=== PATIENT | female | born 1950 ===

== ENCOUNTER 2017-11-07 12:05 | Emergency (ER) | payer MEDICARE, OTHER ==
[2017-11-07 12:05] VITALS: BMI 32.4
[2017-11-07 12:20] VITALS: BP 136/77; PULSE 84; RESP 16; TEMP 98.4; O2SAT 97
--- NOTE | 2017-11-07 12:57 | C.PDOC ---
History Of Present Illness 67 y/o female presents to the ED for evaluation of a wound to her left thumb, sustained 1.5 weeks ago. Patient states she accidentally cut the finger 1.5 weeks ago against a piece of glass. At the time she did not see any foreign body. Patient then saw her PMD a few days ago due to still having pain at the site. X-ray was ordered by her PMD and done earlier today, however patient did not want to wait for results and came here for further evaluation. Tetanus is not up to date. There is no active bleeding. Time Seen by Provider: 11/07/17 12:41 Chief Complaint (Nursing): Finger,Hand,&Wrist History Per: Patient History/Exam Limitations: no limitations Onset/Duration Of Symptoms: Days Current Symptoms Are (Timing): Still Present Past Medical History Reviewed: Historical Data, Nursing Documentation, Vital Signs Vital Signs: Last Vital Signs Temp 98.4 F 11/07/17 12:17 Pulse 84 11/07/17 12:17 Resp 16 11/07/17 12:17 BP 136/77 11/07/17 12:17 Pulse Ox 97 11/07/17 14:26 - Medical History PMH: Anxiety, Arthritis, Asthma Denies: Chronic Kidney Disease Surgical History: Cholecystectomy - [facility] Procedures ESOPHAGOGASTRODUODENOSCOPY [EGD] W/CLOSED BIOPSY (12/08/14) Family History: States: Unknown Family Hx - Social History Hx Tobacco Use: Yes Hx Alcohol Use: No Hx Substance Use: No - Immunization History Hx Tetanus Toxoid Vaccination: No Hx Influenza Vaccination: No Hx Pneumococcal Vaccination: No Review Of Systems Except As Marked, All Systems Reviewed And Found Negative. Skin: Positive for: Lesions Neurological: Negative for: Weakness, Numbness Physical Exam - Physical Exam Appears: Non-toxic, No Acute Distress Skin: Normal Color, Warm, Dry Head: Atraumatic, Normacephalic Eye(s): bilateral: Normal Inspection Oral Mucosa: Moist Neck: Normal ROM Chest: Symmetrical Respiratory: No Accessory Muscle Use Extremity: Normal ROM, Capillary Refill (< 2 sec), Other (marginal to left thumb nail there is a healing laceration, 4 mm in length, with no fluctuance or drainage. Area is minimally tender to palpation, with minimal swelling ) Pulses: Left Radial: Normal, Right Radial: Normal Neurological/Psych: Oriented x3, Normal Speech, Normal Motor, Normal Sensation ED Course And Treatment O2 Sat by Pulse Oximetry: 97 (RA) Pulse Ox Interpretation: Normal - Other Rad left hand xray X-Ray: Viewed By Me, Read By Radiologist Interpretation: PROCEDURE: Left Hand Radiographs. HISTORY: PAIN/SWELLING/ GLASS IN THE THUMB. COMPARISON: None. FINDINGS: BONES: No acute fracture. JOINTS: Mild joint space narrowing. SOFT TISSUES: No retained radiopaque foreign body. OTHER FINDINGS: None. IMPRESSION: No demonstrated fracture or dislocation. No retained radiopaque foreign body Progress Note: Tetanus booster given in the ED. X-ray findings from today were reviewed, and discussed with patient. Will d/c patient home with with Keflex. Patient advised to follow up with hand specialist as needed, referral provided. Disposition Counseled Patient/Family Regarding: Studies Performed, Diagnosis, Need For Followup, Rx Given - Disposition Referrals: Jeffery Jenkins MD [Staff Provider] - Disposition: HOME/ ROUTINE Disposition Time: 12:54 Condition: STABLE Additional Instructions: Follow up with your PMD and Hand specialist within 1-2 days. Return to ED if feel worse. Prescriptions: Mupirocin 2% Ointment [Bactroban Ointment] 1 appl TP BID #1 tube Cephalexin [Keflex] 500 mg PO Q6 #28 cap Instructions: Wound Infection Forms: [facility] (Yakut) - Clinical Impression Clinical Impression: Laceration of finger with infection - PA / CORK MOLDER / Resident Statement MD/DO has reviewed & agrees with the documentation as recorded. - Scribe Statement The provider has reviewed the documentation as recorded by the Scribe (Arianne Mendoza) All medical record entries made by the Scribe were at my direction and personally dictated by me. I have reviewed the chart and agree that the record accurately reflects my personal performance of the history, physical exam, medical decision making, and the department course for this patient. I have also personally directed, reviewed, and agree with the discharge instructions and disposition.
[2017-11-07] MEDS ORDERED: Tetanus/Diphtheria Toxoids 0.5 ml Syringe IM ONE ×2 (13:00→13:08)
== END 2017-11-07 13:14 | disposition home or self-care (01) ==
LOC: C.ER 12:05
DX: S61.012D Laceration without foreign body of left thumb without damage to nail, subsequent encounter (principal); L08.9 Local infection of the skin and subcutaneous tissue, unspecified; W25.XXXD Contact with sharp glass, subsequent encounter

== ENCOUNTER 2018-01-07 16:44 | Emergency (ER) | payer MEDICARE, OTHER ==
[2018-01-07 16:46] VITALS: BMI 32.4
[2018-01-07] MEDS ORDERED: Sodium Chloride 0.9% 1,000 ML IV ONE (17:18)
[2018-01-07] MEDS ORDERED: Sodium Chloride 0.9% 1,000 ML ONE (17:35)
[2018-01-07] MEDS ORDERED: Iodixanol 320 MG/ML 100 ML BOTTLE IV ONE (17:45)
[2018-01-07 17:47] LABS: BASO % 0.5 % (0.0-2.0); EOS # 0.3 K/uL (0.0-0.7); EOS % 3.3 % (0.0-4.0); HEMOGLOBIN 13.2 g/dL (11.0-16.0); LYMPH # 1.9 K/uL (1.0-4.3); LYMPH % 20.9 % (20.0-40.0); MEAN CELL VOLUME 92.6 fL (81.0-99.0); MEAN CORPUSCULAR HEMOGLOBIN 30.9 pg (27.0-31.0); MEAN CORPUSCULAR HGB CONC 33.4 g/dL (33.0-37.0); MEAN PLATELET VOLUME 7.7 fL (7.2-11.7); MONO # 0.7 K/uL (0.0-0.8); MONO % 7.6 % (0.0-10.0); NEUT # 6.1 K/uL (1.8-7.0); NEUT % 67.7 % (50.0-75.0); NRBC % 0.1 % (0.0-2.0); RBC 4.28 Mil/uL (3.80-5.20); RED CELL DISTRIBUTION WIDTH 13.1 % (11.5-14.5); WHITE BLOOD COUNT 9.1 K/uL (4.8-10.8)
[2018-01-07 18:01] LABS: ALB/GLOB RATIO 1.3 (1.0-2.1); ALBUMIN 4.1 g/dL (3.5-5.0); ALT/SGPT 32 U/L (9-52); AST/SGOT 24 U/L (14-36); BLOOD UREA NITROGEN 15 mg/dL (7-17); CALCIUM 9.3 mg/dl (8.6-10.4); GFR AFRICAN-AMERICAN > 60; GFR NON-AFRICAN AMERICAN > 60; LIPASE 92 U/L (23-300)
--- NOTE | 2018-01-07 18:28 | C.PDOC ---
History Of Present Illness <Karthik Vazquezov - Last Filed: 01/07/18 18:54> <Chidi Benavidez - Last Filed: 01/07/18 21:22> 67-year-old female, presents to the emergency department with complaints of abdominal pain for three months. She notes associated swelling. Patient went to her doctor today, who sent her to the ED for further evaluation. Patient denies any nausea/vomiting, diarrhea, fever, chills, chest pain, shortness of breath, dysuria, or any other associated symptoms. (Rose Vazquez) History Per: Patient History/Exam Limitations: no limitations Current Symptoms Are (Timing): Still Present Severity: Moderate Location Of Pain/Discomfort: Diffuse <Rose Vazquez - Last Filed: 01/07/18 18:54> <Chidi Benavidez - Last Filed: 01/07/18 21:22> Time Seen by Provider: 01/07/18 17:06 Chief Complaint (Nursing): Abdominal Pain Past Medical History Reviewed: Historical Data, Nursing Documentation, Vital Signs - Medical History PMH: Anxiety, Arthritis, Asthma Surgical History: Cholecystectomy Family History: States: No Known Family Hx - Social History Hx Tobacco Use: Yes Hx Alcohol Use: No Hx Substance Use: No - Immunization History Hx Tetanus Toxoid Vaccination: Yes Hx Influenza Vaccination: Yes Hx Pneumococcal Vaccination: Yes <Rose Vazquez - Last Filed: 01/07/18 18:54> Vital Signs: Last Vital Signs Temp 99 F 01/07/18 16:56 Pulse 92 H 01/07/18 16:56 Resp 20 01/07/18 16:56 BP 113/52 L 01/07/18 16:56 Pulse Ox 97 01/07/18 18:56 - [facility] Procedures ESOPHAGOGASTRODUODENOSCOPY [EGD] W/CLOSED BIOPSY (12/08/14) Review Of Systems Constitutional: Negative for: Fever, Chills Cardiovascular: Negative for: Chest Pain Respiratory: Negative for: Cough, Shortness of Breath Gastrointestinal: Positive for: Abdominal Pain. Negative for: Nausea, Vomiting Genitourinary: Negative for: Dysuria Musculoskeletal: Negative for: Back Pain Skin: Negative for: Rash <Rose Vazquez - Last Filed: 01/07/18 18:54> Physical Exam - Physical Exam Appears: Non-toxic, No Acute Distress Skin: Normal Color, Warm, Dry, No Rash Head: Atraumatic, Normacephalic Eye(s): bilateral: Normal Inspection, PERRL, EOMI Nose: Normal Oral Mucosa: Moist Lips: Normal Appearing Neck: Normal ROM, Supple Chest: Symmetrical Cardiovascular: Rhythm Regular Respiratory: Normal Breath Sounds, No Accessory Muscle Use Gastrointestinal/Abdominal: Soft, Tenderness (diffuse), No Guarding, No Rebound Back: Normal Inspection Extremity: Normal ROM, No Deformity, No Swelling Neurological/Psych: Oriented x3, Normal Speech <Rose Vazquez - Last Filed: 01/07/18 18:54> ED Course And Treatment - Laboratory Results Result Diagrams: 01/07/18 17:44 01/07/18 17:44 O2 Sat by Pulse Oximetry: 97 (RA) Pulse Ox Interpretation: Normal Progress Note: Bloodwork, CT abd/pel and UA ordered and reviewed. Pt treated with IVF, Toradol and Pepcid. Case endorsed to Dr Benavidez pending labs, CT and re-evaluation. <Rose Vazquez - Last Filed: 01/07/18 18:54> - Laboratory Results Result Diagrams: 01/07/18 17:44 01/07/18 17:44 Pulse Ox Interpretation: Normal Reevaluation Time: 21:14 Reassessment Condition: Improved <Chidi Benavidez - Last Filed: 01/07/18 21:22> Disposition - Disposition Disposition Time: 18:56 <Karthik Vazquezov - Last Filed: 01/07/18 18:54> Counseled Patient/Family Regarding: Studies Performed, Diagnosis, Need For Followup, Rx Given <Chidi Benavidez - Last Filed: 01/07/18 21:22> - Disposition Referrals: Leonela Braun MD [Non-Staff] - Condition: FAIR Additional Instructions: Please return if symptoms recur Prescriptions: Ciprofloxacin [Cipro] 1 tab PO BID #14 tab metroNIDAZOLE [Flagyl] 500 mg PO TID #21 tab Instructions: Acute Abdomen (Belly Pain), Adult (DC), Diverticulosis (DC), Urinary Tract Infection, Adult (DC) Forms: [employer] (Moroccan) - Clinical Impression Clinical Impression: Abdominal pain, Diverticulosis, UTI (urinary tract infection) - Scribe Statement The provider has reviewed the documentation as recorded by the Scribe (Valerie Kwok) <Rose Vazquez - Last Filed: 01/07/18 18:54> <Chidi Benavidez - Last Filed: 01/07/18 21:22> - Scribe Statement All medical record entries made by the Scribe were at my direction and personally dictated by me. I have reviewed the chart and agree that the record accurately reflects my personal performance of the history, physical exam, medical decision making, and the department course for this patient. I have also personally directed, reviewed, and agree with the discharge instructions and disposition. (Rose Vazquez)
[2018-01-07 21:11] LABS: SQUAMOUS EPITHIAL 10 /hpf (0-5); URINE BACTERIA RARE (<OCC); URINE BILIRUBIN NEGATIVE (NEGATIVE); URINE BLOOD NEGATIVE (NEGATIVE); URINE CLARITY Hazy (Clear); URINE COLOR Yellow (YELLOW); URINE GLUCOSE (UA) NORMAL (Normal); URINE LEUKOCYTE ESTERASE 3+ Leu/uL (Negative); URINE PROTEIN NEGATIVE (NEGATIVE); URINE UROBILINOGEN NORMAL mg/dL (0.2-1.0)
[2018-01-07 21:42] VITALS: BP 133/72; PULSE 70; RESP 16; TEMP 99.1; O2SAT 98
--- NOTE | 2018-01-08 10:52 | CT ---
Date of service: 01/07/2018 PROCEDURE: CT Abdomen and Pelvis with contrast HISTORY: abd pain COMPARISON: Comparison is made with 02/19/2015 TECHNIQUE: Contrast dose: 100 cc of Visipaque 320. Axial and reformatted coronal and sagittal CT images of the abdomen and pelvis were obtained after IV contrast administration. Radiation dose: Total exam DLP = 946.88 mGy-cm. This CT exam was performed using one or more of the following dose reduction techniques: Automated exposure control, adjustment of the mA and/or kV according to patient size, and/or use of iterative reconstruction technique. FINDINGS: LOWER THORAX: Unremarkable. LIVER: Unremarkable. No gross lesion or ductal dilatation. GALLBLADDER AND BILE DUCTS: Status post cholecystectomy PANCREAS: Unremarkable. No gross lesion or ductal dilatation. SPLEEN: Unremarkable. ADRENALS: Unremarkable. No mass. KIDNEYS AND URETERS: Unremarkable. No hydronephrosis. No solid mass. VASCULATURE: Unremarkable. No aortic aneurysm. BOWEL: Colonic diverticulosis are noted without evidence of diverticulitis. . No obstruction. No gross mural thickening. APPENDIX: No evidence of appendicitis. PERITONEUM: Unremarkable. No free fluid. No free air. LYMPH NODES: Unremarkable. No enlarged lymph nodes. BLADDER: Unremarkable. REPRODUCTIVE: Unremarkable. BONES: No acute fracture. OTHER FINDINGS: None. IMPRESSION: No evidence of acute pathology in the abdomen and pelvis. Colonic diverticulosis without CT evidence of diverticulitis. Preliminary report was submitted by [facility].
== END 2018-01-07 22:17 | disposition home or self-care (01) ==
LOC: C.ER 16:44
DX: K57.30 Diverticulosis of large intestine without perforation or abscess without bleeding (principal); N39.0 Urinary tract infection, site not specified
CPT/HCPCS: 74177; 80053; 81001; 83690; 85025; 96361; 96374; 96375; 99284; J1885; J7030; Q9967

== ENCOUNTER 2018-06-12 10:52 | Emergency (ER) | payer MEDICARE, OTHER ==
[2018-06-12 10:52] VITALS: BMI 32.4
[2018-06-12 11:01] VITALS: BP 154/77; PULSE 88; RESP 18; TEMP 98.2; O2SAT 99
--- NOTE | 2018-06-12 11:53 | C.PDOC ---
Time Seen by Provider: 06/12/18 11:32 Chief Complaint (Nursing): Abnormal Skin Integrity History Per: Patient Onset/Duration Of Symptoms: Days (few) Current Symptoms Are (Timing): Still Present Possible Cause: Unknown Associated Symptoms: Itching Home/EMS Treatment: None Severity: Moderate Additional History Per: Prior Records Past Medical History Reviewed: Historical Data, Nursing Documentation, Vital Signs Vital Signs: Last Vital Signs Temp 98.2 F 06/12/18 10:54 Pulse 88 06/12/18 10:54 Resp 18 06/12/18 10:54 BP 154/77 H 06/12/18 10:54 Pulse Ox 99 06/12/18 10:54 - Medical History PMH: Anxiety, Arthritis, Asthma Surgical History: Cholecystectomy - [facility] Procedures ESOPHAGOGASTRODUODENOSCOPY [EGD] W/CLOSED BIOPSY (12/08/14) Family History: States: Unknown Family Hx - Social History Hx Tobacco Use: Yes Hx Alcohol Use: No Hx Substance Use: No - Immunization History Hx Tetanus Toxoid Vaccination: Yes Hx Influenza Vaccination: Yes Hx Pneumococcal Vaccination: Yes Review Of Systems Except As Marked, All Systems Reviewed And Found Negative. Constitutional: Negative for: Fever, Weakness Eyes: Negative for: Conjunctivae Inflammation, Eyelid Inflammation, Redness ENT: Negative for: Mouth Pain, Mouth Swelling, Throat Pain, Throat Swelling Respiratory: Negative for: Shortness of Breath Gastrointestinal: Negative for: Vomiting, Abdominal Pain Musculoskeletal: Negative for: Neck Pain Neurological: Negative for: Weakness, Numbness Physical Exam - Physical Exam Appears: Non-toxic, No Acute Distress Skin: Warm, Dry Head: Atraumatic, Normacephalic Eye(s): bilateral: Normal Inspection, PERRL, EOMI Oral Mucosa: Moist, No Drooling, No Trismus Tongue: Normal Appearing Lips: Normal Appearing Throat: Normal Neck: Normal ROM, Supple Lymphatic: No Adenopathy Cardiovascular: Rhythm Regular Respiratory: Normal Breath Sounds, No Accessory Muscle Use Extremity: Normal ROM, No Pedal Edema Neurological/Psych: Oriented x3, Normal Speech, Normal Cognition, Normal Motor, Normal Sensation ED Course And Treatment O2 Sat by Pulse Oximetry: 99 Pulse Ox Interpretation: Normal Disposition Counseled Patient/Family Regarding: Diagnosis, Need For Followup, Rx Given - Disposition Referrals: Shaik Braun MD [Staff Provider] - Disposition: HOME/ ROUTINE Disposition Time: 11:53 Condition: STABLE Additional Instructions: Follow up with your doctor for further evaluation and treatment. Return to the ER if you develop shortness of breath, throat swelling, fever, worsening of sy mptoms or if you have any other concerns. Prescriptions: hydrOXYzine HCl [Atarax] 25 mg PO Q6H PRN #30 tab PRN Reason: Itching / Pruritus Instructions: Hives (DC), Itchy Skin - Clinical Impression Clinical Impression: Pruritus
== END 2018-06-12 12:12 | disposition home or self-care (01) ==
LOC: C.ER 10:52
DX: L29.9 Pruritus, unspecified (principal)